=== PATIENT | male | born 1940 | race African-American/Black ===

== ENCOUNTER 2020-04-26 10:26 | Outpatient (CLI) | payer MEDICARE, SELFPAY ==
[2020-04-26 11:43] LABS: Anion Gap 8 mmol/L (8-16); Blood Urea Nitrogen 26 mg/dL (9-20); Calcium 8.8 mg/dL (8.4-10.2); Carbon Dioxide 24 mmol/L (22-30); Chloride 107 mmol/L (98-107); Cholesterol 142 mg/dL (0-200); Estimated Glomerular Filt Rate 39; Glucose 153 mg/dL (75-110); HDL Direct 38 mg/dL; Potassium 4.3 mmol/L (3.4-5.0); Sodium 139 mmol/L (137-145); Triglycerides 171 mg/dL (<150)
[2020-04-26 11:54] LABS: LDL Cholesterol Direct 69 mg/dL
[2020-04-26 12:20] LABS: Free T4 Free Thyroxine 0.82 ng/mL (0.78-2.19)
== END 2020-04-26 10:27 | disposition home or self-care (01) ==
LOC: ANHLAB 10:28
PROVIDERS: PCP Internal Medicine Endocrinology, Diabetes & Metabolism; Visit Provider Internal Medicine Endocrinology, Diabetes & Metabolism
DX: E11.22 Type 2 diabetes mellitus with diabetic chronic kidney disease (principal); R79.89 Other specified abnormal findings of blood chemistry; G62.9 Polyneuropathy, unspecified
CPT/HCPCS: 36415; 80048; 80061; 82607; 84439; 84443

== ENCOUNTER 2021-04-17 10:49 | Outpatient (CLI) | payer MEDICARE, SELFPAY ==
[2021-04-17 13:08] LABS: Anion Gap 13 mmol/L (8-16); Blood Urea Nitrogen 25 mg/dL (9-20); Calcium 9.6 mg/dL (8.4-10.2); Carbon Dioxide 26 mmol/L (22-30); Chloride 102 mmol/L (98-107); Estimated Glomerular Filt Rate 44; Glucose 205 mg/dL (65-110); HDL Direct 47 mg/dL; Potassium 4.5 mmol/L (3.4-5.0); Sodium 141 mmol/L (137-145)
[2021-04-17 13:19] LABS: LDL Cholesterol Direct 43 mg/dL
[2021-04-17 13:25] LABS: Free T4 Free Thyroxine 0.88 ng/mL (0.78-2.19)
[2021-04-17 14:00] LABS: Microalbumin Urine Random 182.6 mg/L (0-16.7)
[2021-04-17 17:53] LABS: Creatinine Urine 433.3 mg/dL; MALB Creatinine Ratio 42.1 mg/g (0-30)
== END 2021-04-17 10:50 | disposition home or self-care (01) ==
LOC: ANHWCLAB 10:53
PROVIDERS: PCP Internal Medicine Endocrinology, Diabetes & Metabolism; Visit Provider Internal Medicine Endocrinology, Diabetes & Metabolism
DX: E11.22 Type 2 diabetes mellitus with diabetic chronic kidney disease (principal); E78.1 Pure hyperglyceridemia; G62.9 Polyneuropathy, unspecified; R79.89 Other specified abnormal findings of blood chemistry
CPT/HCPCS: 36415; 80048; 82043; 82607; 83718; 83721; 84439; 84443